=== PATIENT | male | born 1965 | race Caucasian/White ===

== ENCOUNTER 2022-03-15 09:13 | Outpatient (CLI) | payer OTHER, SELFPAY ==
--- NOTE | 2022-03-15 09:15 | MR_ITS ---
[address] [address] Phone:?[phone] Fax:?[phone] Referring Physician Information: Og Roach M.D. [id number] [facility] [address] Phone:?[phone] Fax:?[phone] Patient:Keri Cardenas D.O.B:?1965 Sex:?Male Phone:?[phone] [facility] MRN:?[id number] Exam Date:?03/15/2022 ? EXAM: MRI of the LEFT KNEE, without contrast CLINICAL HISTORY: Left knee pain. COMPARISONS: None available. TECHNICAL: MR sequences of the left knee: sagittals: PD, PDFS coronals: PD, STIR axials: PD, T2 FS CONTRAST: None SEDATION: None FINDINGS: Bones: No fracture, bone marrow contusion, or other suspicious bone marrow signal abnormality. Patellofemoral joint: Cartilage: There is a bipartite patella. There is diffuse grade III and IV chondromalacia over the median patellar ridge and medial patellar facet with slight associated degenerative subchondral cystic changes. There is an approximately 1.0 x 1.0 cm area of grade III to IV chondromalacia over the central portion of the trochlea with slight subjacent subchondral cystic change best seen on sagittal series 6 image 18 and axial series 4 image 17. Retinacula: The medial and lateral retinacula are intact. Fat pads: The infrapatellar, quadriceps, and prefemoral fat pads are unremarkable. Knee joint: Effusion: Trace left knee joint effusion. Popliteal cyst: Small popliteal cyst. Intra-articular bodies: None. Medial compartment: Medial meniscus: Intact. Cartilage: Diffuse near full-thickness and full-thickness chondral loss over most of the weightbearing portion of the medial femoral condyle with mild associated degenerative subchondral cystic changes and single full-thickness chondral fissure over the anterior portion of the medial tibial plateau with subjacent subchondral cystic change. Lateral compartment: Lateral meniscus: Intact. Cartilage: Intact. Ligaments: Anterior cruciate ligament: Intact. Posterior cruciate ligament: Intact. Medial collateral ligament: Intact. Posterior oblique ligament: Intact. Fibular collateral ligament: Intact. Posterolateral corner: The distal biceps femoris tendon, iliotibial band, popliteus tendon, popliteus muscle, popliteofibular ligament, and arcuate ligament are intact. Posteromedial corner: The semimembranosus and pes anserine tendons are intact. Extensor mechanism: Patellar tendon: Intact. Quadriceps tendon: Intact, without tendinopathy. IMPRESSION: 1. Diffuse grade III and IV chondromalacia over the median patellar ridge and medial patellar facet with slight associated degenerative subchondral cystic changes and an approximately 1.0 x 1.0 cm area of grade III to IV chondromalacia over the central portion of the trochlea with slight subjacent subchondral cystic change. Bipartite patella. 2. Diffuse near full-thickness and full-thickness chondral loss over most of the weightbearing portion of the medial femoral condyle with mild associated degenerative subchondral cystic changes and single full-thickness chondral fissure over the anterior portion of the medial tibial plateau with subjacent subchondral cystic change. 3. Trace left knee joint effusion. Small popliteal cyst. 4. No ligamentous injury, tendinous pathology, or meniscal tear of the left knee. RCB Electronically signed on 03/15/2022 11:40:00 AM by Will Baron M.D.
== END 2022-03-15 09:14 | disposition home or self-care (01) ==
LOC: MRI 09:14
PROVIDERS: PCP Family Medicine; Visit Provider Orthopaedic Surgery
DX: M25.562 Pain in left knee (principal); M22.42 Chondromalacia patellae, left knee; M25.462 Effusion, left knee; M17.12 Unilateral primary osteoarthritis, left knee
CPT/HCPCS: 73721

== ENCOUNTER 2022-04-15 09:51 | Outpatient (CLI) | payer OTHER, SELFPAY ==
[2022-04-15 13:40] LABS: Basophils Absolute Auto 0.02 K/uL (0.00-0.30); Basophils Percent Auto 0.4 % (0.0-3.0); Eosinophils Absolute Auto 0.11 K/uL (0.00-0.50); Hematocrit 48.5 % (37.0-53.0); Hemoglobin* 16.8 gm/dL (13.5-17.5); Immature Granulocytes Abs Auto 0.02 K/uL (0.00-0.30); Lymphocytes Absolute Auto 1.33 K/uL (0.90-2.90); Lymphocytes Percent Auto 24.2 % (20-44); Mean Corpuscular HGB Conc 35 gm/dL (32-36); Mean Corpuscular Hemoglobin 32 pg (26-34); Mean Corpuscular Volume 91 fL (80-100); Monocytes Percent Auto 10.4 % (0.0-11.0); Neutrophils Absolute Auto 3.45 K/uL (1.7-7.0); Neutrophils Percent Auto 62.6 % (42.0-72.0); Platelet Count* 190 K/uL (140-440); RDW Coefficient of Variation % 12.2 % (11.5-15.5); Red Blood Count 5.34 m/uL (4.30-5.90)
[2022-04-15 13:43] LABS: Slide Review Reflex No
[2022-04-15 14:23] LABS: Chloride* 103 mmol/L (96-114); Potassium* 4.4 mmol/L (3.6-5.1); Sodium* 138 mmol/L (135-149)
[2022-04-15 14:26] LABS: Blood Urea Nitrogen* 17 mg/dL (7-30); Calcium* 9.6 mg/dL (8.4-10.6); Carbon Dioxide* 25 mmol/L (20-32); Creatinine* 1.1 mg/dL (0.5-1.5); Estimated Glomerular Filt Rate 79 ml/min; Glucose* 119 mg/dL (60-115)
== END 2022-04-15 09:52 | disposition home or self-care (01) ==
LOC: FBOREF 09:58
PROVIDERS: PCP Family Medicine; Visit Provider Family Medicine
DX: Z01.818 Encounter for other preprocedural examination (principal)
CPT/HCPCS: 80048; 85025

== ENCOUNTER 2022-04-21 14:37 | Inpatient (IN) | payer OTHER, SELFPAY ==
[2022-04-20] VITALS (20 sets, daily range): BP systolic 99–165; BP diastolic 72–132; PULSE 54–88; RESP 14–18; TEMP 35.3–36.7; O2SAT 94–100; BMI 28.3
[2022-04-20] MEDS: LACTATED RINGERS 1000 ML 1,000 ML 100 ML IV ×2 (08:30→12:44)
[2022-04-20] MEDS: ACETAMINOPHEN 500 MG TABLET 1000 MG PO ×3 (09:45→23:48)
[2022-04-20] MEDS: OXYCODONE (CR) 10 MG TAB.ER.12H PO (09:45)
[2022-04-20] MEDS: CELECOXIB 200 MG CAPSULE PO ×2 (09:45→22:08)
[2022-04-20] MEDS: SODIUM CHLORIDE 0.9 % (FLUSH) 10 ML SYRINGE IVF (10:20)
[2022-04-20] MEDS: MIDAZOLAM HCL 1 MG/ML inj IVP (10:30)
[2022-04-20] MEDS: fentaNYL 100 MCG/2 ML inj IVP (10:30)
--- NOTE | 2022-04-20 10:47 | SUR.PREOP ---
TIME?OUT:?1030 PT/RN/MDA?VERIFICATION?OF?SURGICAL?SITE blateral knees,?PROCEDURE nerve block,?AND?CONSENT OBTAINED?PRIOR?TO?INVASIVE?PROCEDURE.
[2022-04-20] MEDS: CEFAZOLIN 2 GM INJ IVP (11:00)
[2022-04-20] MEDS: TRANEXAMIC ACID 100 MG/ML INJ 1000 MG IV (11:05)
--- NOTE | 2022-04-20 11:13 | P.NB_ITS ---
Nerve Block Nerve Block Date Seen: 04/20/22 Type of block requested by surgeon for post-operative analgesia: geniculars Side: bilateral Time out performed: Yes Verification of patient name: Yes Verification of date of : Yes Site marking: site marked Name of person performing procedure: Ronak Continuous monitoring Was continuous monitoring of O2 sat, B/P, engine monitor, recorded every 15 minutes?: Yes Procedure Checklist: sterile prep, needles and gloves Medications given in 5ml increments after negative aspiration: Marcaine %: 0.25 mL: 12 Needle gauge: 25 and Exparel mL: 6 Needle gauge: 25 Patient tolerated procedure well: Yes Block Charges Block Charge (with Pro Fee): Genicular Nerve Block Use of Ultrasound Machine for Block: No
--- NOTE | 2022-04-20 11:16 | W.PM.NB ---
Nerve Block Nerve Block Date Seen: 04/20/22 Type of block requested by surgeon for post-operative analgesia: adductor canal Side: bilateral Time out performed: Yes Verification of patient name: Yes Verification of date of : Yes Site marking: site marked Name of person performing procedure: Ronak Continuous monitoring Was continuous monitoring of O2 sat, B/P, threat monitoring analyst, recorded every 15 minutes?: Yes Procedure Checklist: sterile prep, needles and gloves Ultrasound guided. Images saved: Yes Medications given in 5ml increments after negative aspiration: Marcaine %: 0.25 mL: 28 Needle gauge: 20 and Exparel mL: 14 Needle gauge: 20 Patient tolerated procedure well: Yes Additional comments: Needle noted adjacent to nerve Block Charges Block Charge (with Pro Fee): Femoral Nerve Use of Ultrasound Machine for Block: Yes- US Guidance/pain block
--- NOTE | 2022-04-20 12:44 | SUR.OPER ---
Patient was transferred from Same Day Surgery by bed to OR2. Patient was assisted to transfer to the OR bed. MOBILE PAINT SPECIALIST positioned pillow to assist airway. Patient was covered by 2 warm blankets to provide warmth and comfort. Patient was positioned per Jeff Robb's orders.
--- NOTE | 2022-04-20 13:46 | CRLHL7_ITS ---
For Patients: As a result of the Cures Act, medical imaging exams and procedure reports are released immediately into your electronic medical record. You may view this report before your referring provider. If you have questions, please contact your health care provider. Indication: Postop Technique: Two views right knee Findings/Impression: Hardware from a right total knee arthroplasty is in satisfactory position. Bone alignment is normal. No sign of acute fracture. Postop changes are within normal limits. Dictated by Kike Toure MD @ 04/20/2022 3:34:22 PM Signed by:?Kike Toure MD @04/20/2022 3:34:22 PM (Electronic Signature)
--- NOTE | 2022-04-20 13:46 | XR_ITS ---
Indication: Postop Technique: Two views left knee Findings/Impression: Hardware from a left total knee arthroplasty is in satisfactory position. Bone alignment is normal. No sign of acute fracture. Postop changes are within normal limits. Dictated by Kike Toure MD @ 04/20/2022 3:36:17 PM Signed by:?Kike Toure MD @04/20/2022 3:36:17 PM (Electronic Signature)
--- NOTE | 2022-04-20 13:48 | PM.ORPRC ---
Procedure Note Date of procedure: 04/20/22 Procedure: SURGEON: Og Roach MD IMAGER: Lisa Solroio PA-C, DONNIE Sapp PREOPERATIVE DIAGNOSIS: Bilateral knee osteoarthritis POSTOPERATIVE DIAGNOSIS: Bilateral knee osteoarthritis NAME OF OPERATION: Bilateral total knee arthroplasty ANESTHESIA: Spinal ESTIMATED BLOOD LOSS: 0 mL COMPLICATIONS: None SPECIMENS: None DRAINS: None PREOPERATIVE ANTIBIOTICS: Ancef 2 grams IMPLANTS: 1. J&J Attune # 8 left, 7 right posterior stabilized femur 2. # 7 fixed-bearing tibia 3. # 7 posterior stabilized, 5 mm fixed-bearing polyethylene 4. 41 patella INDICATIONS: The patient is a 56-year-old male with a longstanding history of severe, unrelenting bilateral knee pain secondary to end-stage (grade IV) bilateral knee osteoarthritis. Despite appropriate nonoperative management, including activity modification, anti-inflammatories, ttsl-ugn-[id number] pain medication, bracing, physical therapy, and injections they continue to have pain and disability. Operative intervention was offered. The risks, benefits and expected outcomes were discussed in detail. These included but were not limited to: Infection, bleeding, injury to blood vessel or nerve, venous thromboembolism. All questions were answered to their satisfaction. Use of an assistant business manager was necessary throughout the case for patient positioning and safety, soft tissue retraction, and closure. PROCEDURE: Spinal anesthesia was administered. The patient was placed supine on the operating table. The assistant business manager made sure the patient was positioned appropriately. Both lower extremities were prepped and draped in the usual sterile fashion. Attention was directed to the left knee, the limb was exsanguinated with the Dharmesh bandage. The pneumatic tourniquet was inflated to 300 mmHg. A standard anterior incision was made with the knee in flexion. Subcutaneous dissection was sharply taken through fascial layer #1. Full-thickness medial and lateral flaps were elevated. The assistant business manager retracted the soft tissues and protected them throughout the case. A standard medial parapatellar approach was made. The patella was everted. The infrapatellar fat pad was preserved. The menisci and cruciate ligaments were sharply d?brided. Marginal osteophytes were d?brided with the rongeur. The drill was used to penetrate the femoral canal. The canal was aspirated and irrigated with pulse lavage. The intramedullary femoral guide was placed for a 5-degree valgus cut, removing 10 mm off the distal femur. The saw was used to make the cut. Whitesides line and the trans epicondylar axis were marked. The femoral sizing guide was pinned onto the distal femur. Three degrees of external rotation nicely parallels the transepicondylar axis. Pins were placed for posterior referencing. The four-in-one cutting guide was pinned onto the distal femur. The anterior, posterior, and chamfer cuts were made. The assistant business manager protected the collateral ligaments. The box cutting guide was pinned. The box cuts were made. The boxed trial was placed and was an excellent fit. Drill holes for the lugs were made. Attention was then turned to the proximal tibia. The extramedullary tibial guide was placed for a neutral varus/valgus cut with 5 degrees of posterior slope, removing 2 mm based off the medial tibial surface. The assistant business manager protected the collateral ligaments and the neurovascular bundle. The saw was used to make the cut. Trial components were placed. The knee was tight in both flexion and extension. Therefore, we replaced the tibial cutting guide, advancing it 2 more mm distally. The saw was used to revise the cut. Trial components were placed again. Now the knee was nicely balanced in both flexion and extension. The trial components were removed. The tray was pinned by the assistant business manager and the drill and the punch were used. The tray was removed. The punch was used again. We placed a bone plug in the femoral canal. Attention was then turned to the patella. [place] patellar thickness was 24 mm. The lobster claw resection guide was used with the 9.5 mm ebonie. The saw was used to make the cut. Drill holes were made by the assistant business manager. The trial was placed and was an excellent fit. Cancellous surfaces were irrigated with pulse lavage and thoroughly dried by the assistant business manager. We cemented the tibial component, then the femoral component. A trial spacer was placed. The knee was brought into full extension. We then cemented the patellar component. Excessive cement was removed. The cement was allowed to harden. Any remaining excessive cement was removed with the osteotome. We impacted the 5 mm polyethylene onto the tibial tray. The knee was taken through a range of motion and was found to be nicely balanced in both flexion and extension. The patella tracks centrally. The assistant business manager did a three minute dilute Betadine solution soak. The assistant business manager irrigated the wound with 3 liters of normal saline via pulse lavage. The assistant business manager reapproximated the extensor mechanism with #1 Vicryl in an interrupted [id number] fashion. The assistant business manager then ran the extensor mechanism with a #1 PDO Stratafix. The assistant business manager closed the subcutaneous tissues with a 3-0 Stratafix and the skin with a running 3-0 Stratafix in a subcuticular fashion. Glue was used to seal the skin. The assistant business manager placed a dry dressing. The tourniquet was released. While the assistant business manager completed the wound closure, attention was turned to the right knee. The limb was exsanguinated with the Dharmesh bandage. The pneumatic tourniquet was inflated to 300 mmHg. A standard anterior incision was made with the knee in flexion. Subcutaneous dissection was sharply taken through fascial layer #1. Full-thickness medial and lateral flaps were elevated. The assistant business manager retracted the soft tissues and protected them throughout the case. A standard medial parapatellar approach was made. The patella was everted. The infrapatellar fat pad was preserved. The menisci and cruciate ligaments were sharply d?brided. Marginal osteophytes were d?brided with the rongeur. The drill was used to penetrate the femoral canal. The canal was aspirated and irrigated with pulse lavage. The intramedullary femoral guide was placed for a 5-degree valgus cut, removing 10 mm off the distal femur. The saw was used to make the cut. Whitesides line and the trans epicondylar axis were marked. The femoral sizing guide was pinned onto the distal femur. Three degrees of external rotation nicely parallels the transepicondylar axis. Pins were placed for posterior referencing. The four-in-one cutting guide was pinned onto the distal femur. The anterior, posterior, and chamfer cuts were made. The assistant business manager protected the collateral ligaments. The box cutting guide was pinned. The box cuts were made. The boxed trial was placed and was an excellent fit. Drill holes for the lugs were made. Attention was then turned to the proximal tibia. The extramedullary tibial guide was placed for a neutral varus/valgus cut with 5 degrees of posterior slope, removing 2 mm based off the medial tibial surface. The assistant business manager protected the collateral ligaments and the neurovascular bundle. The saw was used to make the cut. Trial components were placed. The knee was tight in both flexion and extension. Therefore, we replaced the tibial cutting guide, advancing it 2 more mm distally. The saw was used to revise the cut. Trial components were placed again. Now the knee was nicely balanced in both flexion and extension. The trial components were removed. The tray was pinned by the assistant business manager and the drill and the punch were used. The tray was removed. The punch was used again. We placed a bone plug in the femoral canal. Attention was then turned to the patella. [place] patellar thickness was 24 mm. The lobster claw resection guide was used with the 9.5 mm ebonie. The saw was used to make the cut. Drill holes were made by the assistant business manager. The trial was placed and was an excellent fit. Cancellous surfaces were irrigated with pulse lavage and thoroughly dried by the assistant business manager. We cemented the tibial component, then the femoral component. A trial spacer was placed. The knee was brought into full extension. We then cemented the patellar component. Excessive cement was removed. The cement was allowed to harden. Any remaining excessive cement was removed with the osteotome. We impacted the 5 mm polyethylene onto the tibial tray. The knee was taken through a range of motion and was found to be nicely balanced in both flexion and extension. The patella tracks centrally. The assistant business manager did a three minute dilute Betadine solution soak. The assistant business manager irrigated the wound with 3 liters of normal saline via pulse lavage. The assistant business manager reapproximated the extensor mechanism with #1 Vicryl in an interrupted cmrbpi-qz-ysovm fashion. The assistant business manager then ran the extensor mechanism with a #1 PDO Stratafix. The assistant business manager closed the subcutaneous tissues with a 3-0 Stratafix and the skin with a running 3-0 Stratafix in a subcuticular fashion. Glue was used to seal the skin. The assistant business manager placed a dry dressing. The tourniquet was released. The patient tolerated the procedure well. There were no apparent complications. They were carefully transferred to the hospital bed and taken to the postanesthesia care unit in satisfactory condition. PLAN: The patient will be mobilized with physical therapy. Aspirin will be used for DVT prophylaxis. They will be discharged to home once medically appropriate.
--- NOTE | 2022-04-20 14:37 | W.ANESCHARGE ---
Anesthesia Charges Start Date/Time Anesthesia Start Date: 04/20/22 Anesthesia Start Time: 10:51 Stop Date/Time Anesthesia Stop Date: 04/20/22 Anesthesia Stop Time: 14:35 Summary Emergency: No
--- NOTE | 2022-04-20 14:48 | W.ANESCHARGE ---
Anesthesia Charges Start Date/Time Anesthesia Start Date: 04/20/22 Anesthesia Start Time: 10:51 Stop Date/Time Anesthesia Stop Date: 04/20/22 Anesthesia Stop Time: 14:35 Summary Emergency: No
--- NOTE | 2022-04-20 15:25 | PM.IMCN1 ---
Date of Consult Consult date: 04/20/22 Primary Care Provider: Kike Turner MD Consult Narrative Narrative: Donny Cardenas is a 56 year old male [facility] Medical History (Updated 09/08/22 @ 11:20 by Henrietta Moss) Chronic cough Health care directive on file Hyperlipidemia Surgical History (Updated 09/08/22 @ 10:27 by Henrietta Moss) History of total bilateral knee replacement (04/20/22) Hx of vasectomy Family History Maternal Grandfather Prostate cancer Diabetes Father Lung cancer Mother High blood pressure Breast cancer Uncle Prostate cancer Family/Other Stroke Social History , [facility]) Narrative: , 4 kids, sales, non-smoker, social EtOH Smoking Status: Former smoker What tobacco products do you use: cigarettes Smoking packs per day: 1 Smoking cigarettes per day: 20.0 Smoking quit date/years: <= 15 years ago Do you use any of these nicotine containing products: None Second hand tobacco smoke exposure: No How often do you have a drink containing alcohol: 4 or more times a week Alcohol type: beer How many standard drinks containing alcohol do you have on a typical day: 3 or 4 How often do you have six or more drinks on one occasion: Monthly AUDIT-C Alcohol total score: 7 Non-prescribed substance use: denies use Non-prescribed substance use details: probiotic Caffeine: Yes (coffee, 2-4 cups/AM) Meds Home Medications and Allergies Home Medications Medication Instructions Recorded Confirmed Type Lactobacillus acidophilus 1 1,000 mmu cells PO QDAY 04/14/22 09/08/22 History billion cell capsule calcium carb-vit [id number]-[id number]-vwgu 1 tab PO QDAY 04/14/22 09/08/22 History 333 mg-200 unit-133 mg-5 mg tablet fluticasone propionate 50 2 spray intranasal DAILY PRN 04/15/22 09/08/22 History mcg/actuation nasal spray,suspension Allergies Allergy/AdvReac Type Severity Reaction Status Date / Time No Known Allergies Allergy Unknown Verified 09/08/22 09:57 Exam Const: Vital Signs, click to edit/add: Vital Signs - 24 hr 04/20/22 09:24 04/20/22 10:30 04/20/22 10:45 Temperature 98.1 F Pulse Rate 82 75 78 Respiratory Rate 16 16 16 Blood Pressure 134/89 126/92 H 120/91 H Pulse Oximetry 99 97 98 Oxygen Delivery Me thod Room Air Nasal Cannula Nasal Cannula Oxygen Flow Rate 2 2 04/20/22 14:34 04/20/22 14:40 04/20/22 14:45 Temperature 96.8 F L Pulse Rate 82 78 68 Respiratory Rate 16 14 16 Blood Pressure 101/73 101/74 99/81 Pulse Oximetry 98 99 99 Oxygen Delivery Me thod Room Air Oxygen Flow Rate 04/20/22 14:50 04/20/22 14:55 04/20/22 15:00 Temperature Pulse Rate 70 67 54 L Respiratory Rate 16 14 16 Blood Pressure 105/81 104/72 108/81 Pulse Oximetry 100 98 100 Oxygen Delivery Me thod Oxygen Flow Rate
--- NOTE | 2022-04-20 15:27 | P.IMCN_ITS ---
Date of Consult Patient: [facility] Patient Consult date: 04/20/22 Requesting Physician: Orthopedics Primary Care Provider: Kike Turner MD Consult Narrative Reason for consult: Medical management following bilateral knee arthroplasty Narrative: Donny Cardenas is a 56 year old male admitted who underwent bilateral knee arthroplasty. He is feeling well with no complaints. Pt takes no home medications and is otherwise in very good health. Review of Systems Status of ROS: Reports: 10 or more systems reviewed and unremarkable except as noted in History and below PFSH PFSH Medical History Chronic cough Hyperlipidemia Surgical History (Updated 04/20/22 @ 15:31 by Reagan Andrews MD) History of total bilateral knee replacement Hx of vasectomy Family History Maternal Grandfather Prostate cancer Diabetes Father Lung cancer Mother High blood pressure Breast cancer Uncle Prostate cancer Family/Other Stroke Social History Narrative: , 4 kids, sales, non-smoker, social EtOH Smoking Status: Former smoker What tobacco products do you use: cigarettes Smoking packs per day: 1 Smoking cigarettes per day: 20.0 Smoking quit date/years: <= 15 years ago Do you use any of these nicotine containing products: None Second hand tobacco smoke exposure: No How often do you have a drink containing alcohol: 4 or more times a week Alcohol type: beer How many standard drinks containing alcohol do you have on a typical day: 3 or 4 How often do you have six or more drinks on one occasion: Monthly AUDIT-C Alcohol total score: 7 Non-prescribed substance use: denies use Non-prescribed substance use details: probiotic Caffeine: Yes (coffee, 2-4 cups/AM) Meds Home Medications and Allergies Home Medications Medication Instructions Recorded Confirmed Type Lactobacillus acidophilus 1 1,000 mmu cells PO QDAY 04/14/22 04/20/22 History billion cell capsule calcium carb-vit T0-esgaelaql-pjgj 1 tab PO QDAY 04/14/22 04/20/22 History 333 mg-200 unit-133 mg-5 mg tablet fluticasone propionate 50 2 spray intranasal DAILY PRN 04/15/22 04/20/22 History mcg/actuation nasal spray,suspension Home Medication Comments: Pt not taking any chronic medications at this time. Allergies Allergy/AdvReac Type Severity Reaction Status Date / Time No Known Allergies Allergy Unknown Verified 04/20/22 09:20 Exam Narrative: Exam Narrative: EXAM GENERAL: Patient appears comfortable and well. EYES: No scleral icterus. THYROID: no thyroid nodules or thyromegaly. LYMPH: No supraclavicular or cervical lymphadenopathy. SKIN: Visible skin seen during exam normal or with benign process only. EXT: Bilateral knees sterilely dressed. HEART: Regular rate and rhythm with no murmurs, rubs, or gallops. LUNGS: Clear to auscultation bilaterally with no crackles or wheezes. ABD: Soft, non tender, non distended. PSYCH: Good eye contact, speech is not pressured. Const: Vital Signs, click to edit/add: Vital Signs - 24 hr 04/20/22 09:24 04/20/22 10:30 04/20/22 10:45 Temperature 98.1 F Pulse Rate 82 75 78 Respiratory Rate 16 16 16 Blood Pressure 134/89 126/92 H 120/91 H Pulse Oximetry 99 97 98 Oxygen Delivery Me thod Room Air Nasal Cannula Nasal Cannula Oxygen Flow Rate 2 2 04/20/22 14:34 04/20/22 14:40 04/20/22 14:45 Temperature 96.8 F L Pulse Rate 82 78 68 Respiratory Rate 16 14 16 Blood Pressure 101/73 101/74 99/81 Pulse Oximetry 98 99 99 Oxygen Delivery Me thod Room Air Oxygen Flow Rate 04/20/22 14:50 04/20/22 14:55 04/20/22 15:00 Temperature Pulse Rate 70 67 54 L Respiratory Rate 16 14 16 Blood Pressure 105/81 104/72 108/81 Pulse Oximetry 100 98 100 Oxygen Delivery Me thod Oxygen Flow Rate Assessment and Plan Assessment and plan (1) History of total bilateral knee replacement: Status: Acute Assessment and Plan: Patient takes no home medications. Will follow standard postoperative PT OT and routine care. Patient anticipating discharge home the next 1-2 days. I did call Orthopedics suggesting consideration of a more aggressive DVT prophylaxis. Patient will be receiving aspirin 81 mg b.i.d. for DVT prophylaxis. Patient is a full code.
[2022-04-20] MEDS: HYDROmorphone 0.5 mg/0.5 ml inj IVP ×4 (16:00→21:25)
[2022-04-20] MEDS: CEFAZOLIN 2 GM in 0.9 % SODIUM CHLORIDE Mini-bag 100 ML IVPB (17:20)
[2022-04-20] MEDS: ONDANSETRON 2 MG/ML inj 4 MG IVP ×2 (17:20→20:55)
--- NOTE | 2022-04-20 17:58 | PC.NURSE ---
[id number]- Patient arrives to unit at approximately 1515. at bedside. he initially denies pain, then describes incisional pain. Dilaudid given. Temperature is decreased- see charting- [place] hastings applied. Ice chip and water offered. Cryocuffs in place.
[2022-04-20] MEDS: LACTATED RINGERS 1000 ML 1,000 ML 75 ML IV (18:59)
[2022-04-20 19:26] LABS: Sodium* 138 mmol/L (135-149)
[2022-04-20] MEDS: LORazepam 0.5 MG TABLET PO (22:09)
--- NOTE | 2022-04-20 22:31 | PC.NURSE ---
Shift Note [id number]: Pt friendly and cooperative but c/o severe nausea and pain. Zofran IVP x2 and order obtained for Compazine if needed for breakthrough nausea. Dilaudid 0.5mg IVP PRN for pain 7-10, pt unable to transition to oral pain meds d/t nausea. Walked to BR with assist x2, GB, and walker, and was able to void. Maintenance fluids ongoing d/t poor oral intake and emesis x3. at bedside. BP's slightly hypertensive, VS otherwise WNL and LS COA. Dressing to both knees C,D,&I with cryocuffs in place.
[2022-04-20] MEDS: ASPIRIN 81 MG TABLET EC PO (23:48)
[2022-04-21] VITALS (8 sets, daily range): BP systolic 119–149; BP diastolic 75–92; PULSE 78–97; RESP 16–18; TEMP 36.2–37.3; O2SAT 92–100
[2022-04-21] MEDS: OXYCODONE 5 MG TABLET PO ×11 (00:09→23:04)
[2022-04-21] MEDS: CEFAZOLIN 2 GM in 0.9 % SODIUM CHLORIDE Mini-bag 100 ML IVPB ×2 (00:47→08:49)
[2022-04-21] MEDS: LORazepam 0.5 MG TABLET PO ×2 (00:50→22:13)
[2022-04-21] MEDS: LACTATED RINGERS 1000 ML 1,000 ML 75 ML IV ×2 (05:10→10:45)
--- NOTE | 2022-04-21 05:13 | PC.NURSE ---
Addendum entered by Rosendo Tavares RN 04/21/22 06:28: Up to void 350mls moises urine IVF cont's. Ambulated slowly but steadily and needed physical assist to swin legs into bed. Surgical dressings CDI. Original Note: VSS w/O2 tapered to RA. Pain from 7/10 down to 4/10 gave Oxycodone Q2H w/bites of gibran crackers and jordan Tylenol. Ice packs placed behind both knees and cryo cuff around knees as he was complaining of pain behind as well and had increase in pain there w/light palpation. Nausea has gone from moderate to mild. Pt was given an additional 1mg of Ativan about MN. Pt diet was backed off to sips/chips at MN d/t nausea and is now tolerating water. Pt c/o being cold even though his skin was warm and he was piled high w/blankets so MEENA blanket was applied overnight. Has not gotten up to void yet so we'll see how that goes. in room
[2022-04-21] MEDS: ACETAMINOPHEN 500 MG TABLET 1000 MG PO ×3 (05:48→19:27)
[2022-04-21 07:12] LABS: Basophils Absolute Auto 0.01 K/uL (0.00-0.30); Basophils Percent Auto 0.1 % (0.0-3.0); Eosinophils Absolute Auto 0.01 K/uL (0.00-0.50); Eosinophils Percent Auto 0.1 % (0.0-7.0); Hematocrit 43.1 % (37.0-53.0); Hemoglobin* 14.7 gm/dL (13.5-17.5); Immature Granulocytes Abs Auto 0.01 K/uL (0.00-0.30); Mean Corpuscular HGB Conc 34 gm/dL (32-36); Mean Corpuscular Hemoglobin 31 pg (26-34); Mean Corpuscular Volume 92 fL (80-100); Monocytes Percent Auto 8.8 % (0.0-11.0); Neutrophils Percent Auto 75.9 % (42.0-72.0); Platelet Count* 164 K/uL (140-440); RDW Coefficient of Variation % 12.3 % (11.5-15.5); Red Blood Count 4.71 m/uL (4.30-5.90); White Blood Count* 8.21 K/uL (4.50-11.00)
[2022-04-21 07:30] LABS: INR 0.99 (0.91-1.10); Potassium* 4.4 mmol/L (3.6-5.1); Prothrombin Time 13.4 Seconds
[2022-04-21 07:31] LABS: Slide Review Reflex No
[2022-04-21 07:33] LABS: Blood Urea Nitrogen* 15 mg/dL (7-30); Est. Creatinine Clearance* 91.61; Estimated Glomerular Filt Rate 89 ml/min
[2022-04-21 08:12] LABS: Sodium* 134 mmol/L (135-149)
[2022-04-21] MEDS: SENNOSIDES 1 TAB TABLET 2 TAB PO ×2 (08:44→20:44)
[2022-04-21] MEDS: CELECOXIB 200 MG CAPSULE PO ×2 (08:45→20:44)
[2022-04-21] MEDS: ASPIRIN 81 MG TABLET EC PO ×2 (08:45→20:44)
--- NOTE | 2022-04-21 10:01 | PM.ORPN ---
Subjective Subjective Time Seen by Provider: 07:00 Date Seen: 04/21/22 Principal diagnosis: Status post bilateral knee replacements Interval history: Donny is comfortable at rest this morning. He is accompanied by his . He has no nausea or vomiting currently. Ortho Exam Narrative Exam Narrative: Alert and oriented x3. Patient is in no acute distress. Converses without labored breathing. Hearing is grossly intact. Ambulates with a walker. Examination of the right and left knees shows the dressings are intact. Mild fusion. Mild soft tissue edema about the knees. Bilateral calves are soft and nontender. CMS is intact bilateral lower extremities. Bilateral quads are weak. Const Vital Signs, click to edit/add: Vital Signs - 24 hr 04/20/22 10:30 04/20/22 10:45 04/20/22 14:34 Temperature 96.8 F L Pulse Rate 75 78 82 Pulse Rate [Right Pulse Oximeter] Respiratory Rate 16 16 16 Blood Pressure 126/92 H 120/91 H 101/73 Blood Pressure [Left Arm] Pulse Oximetry 97 98 98 Oxygen Delivery Method Nasal Cannula Nasal Cannula Room Air Oxygen Flow Rate 2 2 04/20/22 14:40 04/20/22 14:45 04/20/22 14:50 Temperature Pulse Rate 78 68 70 Pulse Rate [Right Pulse Oximeter] Respiratory Rate 14 16 16 Blood Pressure 101/74 99/81 105/81 Blood Pressure [Left Arm] Pulse Oximetry 99 99 100 Oxygen Delivery Method Oxygen Flow Rate 04/20/22 14:55 04/20/22 15:00 04/20/22 18:59 Temperature 97 F L Pulse Rate 67 54 L Pulse Rate [Right Pulse Oximeter] Respiratory Rate 14 16 Blood Pressure 104/72 108/81 Blood Pressure [Left Arm] Pulse Oximetry 98 100 Oxygen Delivery Method Oxygen Flow Rate 04/20/22 16:15 04/20/22 16:30 04/20/22 16:45 Temperature 95.6 F L 95.9 F L Pulse Rate Pulse Rate [Right Pulse Oximeter] 61 57 L 54 L Respiratory Rate 18 16 16 Blood Pressure Blood Pressure [Left Arm] 126/90 H 126/89 122/86 Pulse Oximetry 98 97 99 Oxygen Delivery Method Room Air Room Air Room Air Oxygen Flow Rate 04/20/22 17:00 04/20/22 17:30 04/20/22 18:00 Temperature 96.4 F L Pulse Rate Pulse Rate [Right Pulse Oximeter] 55 L 60 67 Respiratory Rate 16 16 16 Blood Pressure Blood Pressure [Left Arm] 128/92 H 155/104 H 165/106 H Pulse Oximetry 99 96 96 Oxygen Delivery Method Room Air Room Air Room Air Oxygen Flow Rate 04/20/22 19:00 04/20/22 20:00 04/20/22 21:00 Temperature 97 F L 97.4 F L Pulse Rate Pulse Rate [Right Pulse Oximeter] 79 76 84 Respiratory Rate 16 16 16 Blood Pressure Blood Pressure [Left Arm] 161/132 H 156/93 H 144/87 H Pulse Oximetry 96 96 94 Oxygen Delivery Method Room Air Room Air Room Air Oxygen Flow Rate 04/20/22 22:27 04/21/22 00:27 04/21/22 03:00 Temperature 97.9 F 98.6 F Pulse Rate Pulse Rate [Right Pulse Oximeter] 88 84 97 Respiratory Rate 16 16 16 Blood Pressure Blood Pressure [Left Arm] 142/75 H 149/92 H 130/86 Pulse Oximetry 96 100 96 Oxygen Delivery Method Nasal Cannula Nasal Cannula Room Air Oxygen Flow Rate 1 1 Assessment and Plan Assessment and plan (1) History of total bilateral knee replacement: Problem details: Plan for discharge is today to home if he meets discharge criteria. DVT prophylaxis includes aspirin 81 mg twice daily x1 month, Bob stockings x1 month may remove for 1 hr per day, frequent ambulation, every hour throughout the day. Remove dressings in 1 week. Observe wound and phone Orthopedics with any questions or concerns Return to clinic in 1 week for a wound check Return to clinic in [address] Roach Minimize narcotic use. Wean off and discontinue soon as possible. Activities as tolerated. No strenuous activity. Outpatient physical therapy as scheduled. Ice and elevate the operative extremity. No restriction on ice. Status: Acute
[2022-04-21] MEDS: SODIUM CHLORIDE 0.9 % (FLUSH) 10 ML SYRINGE 5 ML IVF ×3 (10:30→20:48)
--- NOTE | 2022-04-21 10:42 | PM.DS1 ---
DS: Providers Provider Time Seen by Provider: 09:45 Date Seen: 04/21/22 Primary care physician: Kike Turner MD Consults: 04/20/22 16:10 Consult to Occupational Therapy [CONS] Routine Comment: Reason(s) for OT Consult:: ADLs Prior to Discharge Any Restrictions?:: See Comment Comment: See nursing activity order for any restrictions. Consult to Physical Therapy [CONS] Routine Comment: Ambulate in the rodríguez today. Reason(s) for PT Consult:: TKA TX Protocol POD#0 Any Restrictions?:: See Comment Comment: See nursing activity order for any restrictions. Consult to Physician [CONS] Routine Comment: Consulting Provider: Hospitalists Has provider been notified: No Consult to Urology Teacher [CONS] Routine Comment: Reason for Consult:: Discharge Planning Needs Attending Physician on discharge: Og Roach MD Date of Discharge: 04/21/22 DS: Diagnosis Discharge Diagnosis (1) History of total bilateral knee replacement: Status: Acute Problem details: Plan for discharge is today to home if he meets discharge criteria. DVT prophylaxis includes aspirin 81 mg twice daily x1 month, Bob stockings x1 month may remove for 1 hr per day, frequent ambulation, every hour throughout the day. Remove dressings in 1 week. Observe wound and phone Orthopedics with any questions or concerns Return to clinic in 1 week for a wound check Return to clinic in [address] Roach Minimize narcotic use. Wean off and discontinue soon as possible. Activities as tolerated. No strenuous activity. Outpatient physical therapy as scheduled. Ice and elevate the operative extremity. No restriction on ice. (2) Chronic cough: Status: Acute (3) Hyperlipidemia: Status: Acute DS: Summary Hospital Course Hospital Course: This is a 56-year-old male wonder went in elective bilateral knee arthroplasty yesterday. He is generally pretty healthy and takes no home medications. He had some nausea and vomiting postop yesterday, but this has since resolved. His is concerned about getting him up the steps into their house, but notes that once they are there he will not have to do any stairs. After discussion, she identified a brother who lives in town who could help get house. He is discharged home today in stable condition. Time Spent with Patient Time attestation: Total time spent providing and/or coordinating discharge services: Exam Narrative: Exam Narrative: General: No acute distress. Awake, alert, oriented x3. No pallor. No jaundice. Oropharynx: Clear. Mucous membranes moist. Cardiovascular: Regular rate and rhythm. No murmurs, gallops, or rubs. Respiratory: Clear to auscultation bilaterally. No wheezes or crackles. Abdomen: Bowel sounds present. Soft, nondistended, nontender. Extremities: Bilateral knee bandages are clean, dry, and intact. Const: Vital Signs, click to edit/add: Vital Signs - 24 hr 04/20/22 10:45 04/20/22 14:34 04/20/22 14:40 Temperature 96.8 F L Pulse Rate 78 82 78 Pulse Rate [Right Pulse Oximeter] Respiratory Rate 16 16 14 Blood Pressure 120/91 H 101/73 101/74 Blood Pressure [Le ft Arm] Pulse Oximetry 98 98 99 Oxygen Delivery Me thod Nasal Cannula Room Air Oxygen Flow Rate 2 04/20/22 14:45 04/20/22 14:50 04/20/22 14:55 Temperature Pulse Rate 68 70 67 Pulse Rate [Right Pulse Oximeter] Respiratory Rate 16 16 14 Blood Pressure 99/81 105/81 104/72 Blood Pressure [Le ft Arm] Pulse Oximetry 99 100 98 Oxygen Delivery Me thod Oxygen Flow Rate 04/20/22 15:00 04/20/22 18:59 04/20/22 16:15 Temperature 97 F L 95.6 F L Pulse Rate 54 L Pulse Rate [Right Pulse Oximeter] 61 Respiratory Rate 16 18 Blood Pressure 108/81 Blood Pressure [Le ft Arm] 126/90 H Pulse Oximetry 100 98 Oxygen Delivery Me thod Room Air Oxygen Flow Rate 04/20/22 16:30 04/20/22 16:45 04/20/22 17:00 Temperature 95.9 F L Pulse Rate Pulse Rate [Right Pulse Oximeter] 57 L 54 L 55 L Respiratory Rate 16 16 16 Blood Pressure Blood Pressure [Le ft Arm] 126/89 122/86 128/92 H Pulse Oximetry 97 99 99 Oxygen Delivery Me thod Room Air Room Air Room Air Oxygen Flow Rate 04/20/22 17:30 04/20/22 18:00 04/20/22 19:00 Temperature 96.4 F L 97 F L Pulse Rate Pulse Rate [Right Pulse Oximeter] 60 67 79 Respiratory Rate 16 16 16 Blood Pressure Blood Pressure [Le ft Arm] 155/104 H 165/106 H 161/132 H Pulse Oximetry 96 96 96 Oxygen Delivery Me thod Room Air Room Air Room Air Oxygen Flow Rate 04/20/22 20:00 04/20/22 21:00 04/20/22 22:27 Temperature 97.4 F L Pulse Rate Pulse Rate [Right Pulse Oximeter] 76 84 88 Respiratory Rate 16 16 16 Blood Pressure Blood Pressure [Le ft Arm] 156/93 H 144/87 H 142/75 H Pulse Oximetry 96 94 96 Oxygen Delivery Me thod Room Air Room Air Nasal Cannula Oxygen Flow Rate 1 04/21/22 00:27 04/21/22 03:00 04/21/22 07:00 Temperature 97.9 F 98.6 F 99.2 F Pulse Rate Pulse Rate [Right Pulse Oximeter] 84 97 84 Respiratory Rate 16 16 16 Blood Pressure Blood Pressure [Le ft Arm] 149/92 H 130/86 119/75 Pulse Oximetry 100 96 95 Oxygen Delivery Me thod Nasal Cannula Room Air Room Air Oxygen Flow Rate 1 DS: Data Data Completed and Pending Completed studies during hospitalization: Ordering Physician: Og Roach M.D. Date of Service: 04/20/22 Procedure(s): XR knee RT 2V Accession Number(s): [id number] cc: Kike Turner M.D.; Og Roach M.D.~ For Patients: As a result of the Cures Act, medical imaging exams and procedure reports are released immediately into your electronic medical record. You may view this report before your referring provider. If you have questions, please contact your health care provider. Indication: Postop Technique: Two views left knee Findings/Impression: Hardware from a left total knee arthroplasty is in satisfactory position. Bone alignment is normal. No sign of acute fracture. Postop changes are within normal limits. Dictated by Kike Toure MD @ 04/20/2022 3:36:17 PM (Electronically Signed) Labs on day of discharge: Labs from last 24 hours 04/21/22 04/21/22 04/21/22 06:40 06:40 06:40 WBC RBC Hgb Hct MCV MCH MCHC RDW Coeff of Deven Plt Count Neut % (Auto) Lymph % (Auto) [place] % (Auto) Eos % (Auto) Baso % (Auto) Neut # (Auto) Lymph # (Auto) [place] # (Auto) Eos # (Auto) Baso # (Auto) Abs Immat Gran (auto) INR 0.99 Sodium 134 L Potassium 4.4 BUN 15 Creatinine 1.0 Estimated Creat Clear 91.61 Estimated GFR 89 04/21/22 04/20/22 06:40 19:03 WBC 8.21 RBC 4.71 Hgb 14.7 Hct 43.1 MCV 92 MCH 31 MCHC 34 RDW Coeff of Deven 12.3 Plt Count 164 Neut % (Auto) 75.9 H Lymph % (Auto) 15.0 L [place] % (Auto) 8.8 Eos % (Auto) 0.1 Baso % (Auto) 0.1 Neut # (Auto) 6.20 Lymph # (Auto) 1.20 [place] # (Auto) 0.70 Eos # (Auto) 0.01 Baso # (Auto) 0.01 Abs Immat Gran (auto) 0.01 INR Sodium 138 Potassium BUN Creatinine Estimated Creat Clear Estimated GFR Discharge Plan Discharge Disposition: Home, Self-Care Discharging Surgeon: Og Roach Follow-Up Appointment: 1 week Prescriptions: New aspirin [Children's Aspirin] 81 mg Tablet,Chewable 81 mg PO BID 30 Days Qty: 60 0RF acetaminophen 500 mg Tablet 500 - 1,000 mg PO Q6H MDD 4000 mg per day PRN (Reason: pain) Qty: 100 0RF celecoxib 200 mg Capsule 200 mg PO BID PRNQty: 14 0RF oxycodone 5 mg Tablet 2.5 - 5 mg PO Q4-6H MDD 6 tabs per day PRN (Reason: Pain) Qty: 42 0RF Rx Instructions: Minimize. Discontinue as soon as possible sennosides [Senna Lax] 8.6 mg Tablet 17.2 mg PO BID PRN (Reason: constipation) Qty: 100 0RF Continued Lactobacillus acidophilus 1 billion cell capsule 1,000 mmu cells PO QDAY calcium carb-D3-mag [id number] [id number] vp-giwd-ec-mg tablet 1 tab PO QDAY Rx Instructions: administer with a meal fluticasone propionate 50 mcg/actuation spray,suspension 2 spray intranasal DAILY PRN Activity Level: Activity as Tolerated and No strenuous activity Activity Detail: Keep dressings on for 1 week. Dressings are waterproof. May shower. Surgical glue covers the wound. Attend outpatient physical therapy if scheduled. Ice operative extremity without restriction. Wear compression stockings for 1 month post surgery. May remove for 1 hour per day. Ambulate every hour throughout the day. Do not drive while taking narcotic pain medication. Do not drink alcohol while taking narcotic pain medication. May drive when safe to do so and have full function of the extremities, this may take 6 weeks or more. Notify Orthopedics with any questions or concerns. ([phone]) Discharge Diet: Regular Patient Instructions: Operative Knee Arthroscopy (DC) Forms: Work/Release Restrictions Follow-up: Kike Turner MD [Primary Care Provider] - Og Roach MD [Staff Physician] - 04/28/22 11:00 am (Follow up with [facility]) Discharge Orders: Discharge Order (Routine); Ordered 04/21/22 Ordered By: Mana Ramirez
--- NOTE | 2022-04-21 14:14 | PC.NURSE ---
Pt s/p Bilateral TKA with Dr. Diane done yesterday. Please see eMar for medications given on day shift. Pt has rated his pain 5-7.5 depending on his activity level, he has received oxycodone 10mg PO approximately every 2-21/2 hours in addition to celebrex and scheduled tylenol doses,. Bilateral teds, cryocuffs, SCDs and ice packs under each knee for comfort. Eval by Mana NICHOLAS this am. Pt was extremely nauseated after his surgical procedure and states I did not sleep well. Advanced to regular diet this am. Last IV ATB infused and IV to SL. Bed alarm and chair alarm engaged per fall prevention routine protocol. PT and OT evaluated pt and recommendation is for pt to stay one more night. Mana NICHOLAS notified/ updated per Suzan mcnamara RN via phone. Intake 870 cc with 400cc out in clear moises urine. Encouraged IS, PO fluids and nutritional intake. Plan d/c to home tomorrow with Faby who has been present and supportive at [place]'s bedside.
--- NOTE | 2022-04-21 14:51 | PC.SOCIAL ---
Met with pt. and spouse to discuss discharge plans. Pt. had bilateral TKA surgery. Pt. plans to discharge home with spouse support and does not feel he will need any additional resources at discharge. Pt. is aware he can contact web content & social media manager if he needs any additional resources for discharge.
[2022-04-21] MEDS: ONDANSETRON 2 MG/ML inj 4 MG IVP (19:09)
--- NOTE | 2022-04-21 21:29 | PC.NURSE ---
Shift Note [id number]: Pt friendly and cooperative with cares. Moves with with assist x1 with GB and walker. VS WNL and LS COA. Surgical dressings to knees bilaterally C,D,&I with Cryocuffs in place. Positive pedal pulses and pt verbalizes baseline sensation in LE's bilaterally. Continues to require 10mg Oxycodone approximately Q2H, rating pain 8-9/10 most of this shift. At HS pt appears more comfortable, at bedside visiting. Zofran given IVP this evening for wave of nausea, no emesis at this time.
[2022-04-22] MEDS: ACETAMINOPHEN 500 MG TABLET 1000 MG PO ×3 (02:02→12:31)
[2022-04-22] MEDS: OXYCODONE 5 MG TABLET PO ×4 (02:04→12:59)
[2022-04-22 03:00] VITALS: BP 127/76; PULSE 90; RESP 18; TEMP 36.4; O2SAT 92
[2022-04-22 04:10] VITALS: TEMP 37
[2022-04-22 06:27] LABS: Basophils Absolute Auto 0.02 K/uL (0.00-0.30); Basophils Percent Auto 0.2 % (0.0-3.0); Eosinophils Absolute Auto 0.08 K/uL (0.00-0.50); Eosinophils Percent Auto 0.9 % (0.0-7.0); Hematocrit 42.8 % (37.0-53.0); Hemoglobin* 14.6 gm/dL (13.5-17.5); Immature Granulocytes Abs Auto 0.01 K/uL (0.00-0.30); Mean Corpuscular HGB Conc 34 gm/dL (32-36); Mean Corpuscular Hemoglobin 31 pg (26-34); Mean Corpuscular Volume 92 fL (80-100); Monocytes Percent Auto 7.7 % (0.0-11.0); Neutrophils Percent Auto 74.1 % (42.0-72.0); Platelet Count* 166 K/uL (140-440); RDW Coefficient of Variation % 12.3 % (11.5-15.5); Red Blood Count 4.67 m/uL (4.30-5.90); White Blood Count* 8.79 K/uL (4.50-11.00)
[2022-04-22 06:43] LABS: Est. Creatinine Clearance* 91.61; Estimated Glomerular Filt Rate 89 ml/min
[2022-04-22 06:44] LABS: Blood Urea Nitrogen* 13 mg/dL (7-30)
[2022-04-22 07:06] LABS: Slide Review Reflex No
[2022-04-22 07:15] LABS: Prothrombin Time 15.7 Seconds
--- NOTE | 2022-04-22 07:19 | PC.NURSE ---
Pt slept well overnight. Up with 1 assist and walker. Bilat knee incisions covered with dressing which are CDI. oxycodone q2-3hrs for pain. Voiding well. No stool.
[2022-04-22] MEDS: SODIUM CHLORIDE 0.9 % (FLUSH) 10 ML SYRINGE 5 ML IVF (07:28)
[2022-04-22] MEDS: ONDANSETRON 2 MG/ML inj 4 MG IVP (07:28)
[2022-04-22 07:30] VITALS: BP 124/81; PULSE 87; RESP 16; TEMP 36.6; O2SAT 93
[2022-04-22] MEDS: PROCHLORPERAZINE 10 MG TABLET 5 MG PO (08:25)
[2022-04-22] MEDS: CELECOXIB 200 MG CAPSULE PO (08:51)
[2022-04-22] MEDS: ASPIRIN 81 MG TABLET EC PO (08:51)
[2022-04-22] MEDS: SENNOSIDES 1 TAB TABLET 2 TAB PO (08:52)
--- NOTE | 2022-04-22 10:19 | PM.ORPN ---
Subjective Subjective Time Seen by Provider: 07:00 Date Seen: 04/22/22 Principal diagnosis: Status post bilateral knee replacements Interval history: Donny is comfortable at rest this morning. He is accompanied by his . He has had nausea upon ambulating. Ortho Exam Narrative Exam Narrative: Alert and oriented x3. Patient is in no acute distress. Converses without labored breathing. Hearing is grossly intact. Ambulates with a walker. Examination of bilateral knees shows since our place. Mild effusion. Mild soft tissue edema about both knees. Bilateral calves are soft and nontender. CMS is intact bilateral lower extremities. Weak quad function. Const Vital Signs, click to edit/add: Vital Signs - 24 hr 04/21/22 11:15 04/21/22 15:00 04/21/22 15:00 Temperature 97.1 F L 98.4 F Pulse Rate [Right Pulse Oximeter] 90 86 86 Respiratory Rate 18 18 18 Blood Pressure [Left Arm] 131/89 128/81 Pulse Oximetry 92 97 Oxygen Delivery Method Room Air Room Air 04/21/22 19:00 04/21/22 23:00 04/22/22 04:10 Temperature 98.6 F 98.6 F Pulse Rate [Right Pulse Oximeter] 78 78 Respiratory Rate 18 Blood Pressure [Left Arm] 136/78 Pulse Oximetry 96 Oxygen Delivery Method Room Air 04/22/22 03:00 04/21/22 23:30 04/22/22 07:30 Temperature 97.5 F L 98 F 98 F Pulse Rate [Right Pulse Oximeter] 90 82 87 Respiratory Rate 18 16 16 Blood Pressure [Left Arm] 127/76 126/80 124/81 Pulse Oximetry 92 95 93 Oxygen Delivery Method Room Air Room Air Room Air Documenting provider has reviewed patient's vital signs: yes Assessment and Plan Assessment and plan (1) History of total bilateral knee replacement: Problem details: Plan for discharge is today to home today. I have added Ondansetron for home use, for nausea. DVT prophylaxis includes aspirin 81 mg twice daily x1 month, Bob stockings x1 month may remove for 1 hr per day, frequent ambulation, every hour throughout the day. Remove dressings in 1 week. Observe wound and phone Orthopedics with any questions or concerns Return to clinic in 1 week for a wound check Return to clinic in [address] Roach Minimize narcotic use. Wean off and discontinue soon as possible. Activities as tolerated. No strenuous activity. Outpatient physical therapy as scheduled. Ice and elevate the operative extremity. No restriction on ice. Status: Acute (2) Chronic cough: Status: Acute (3) Hyperlipidemia: Status: Acute
[2022-04-22] MEDS: TRAMADOL HCL 50 MG TABLET PO (10:47)
--- NOTE | 2022-04-22 10:47 | P.DS_ITS ---
DS: Providers Provider Date Seen: 04/22/22 Date of admission: 04/21/22 14:37 Primary care physician: Kike Turner MD Admitting Clinician: Og Roach MD Consults: 04/20/22 16:10 Consult to Occupational Therapy [CONS] Routine Comment: Reason(s) for OT Consult:: ADLs Prior to Discharge Any Restrictions?:: See Comment Comment: See nursing activity order for any restrictions. Consult to Physical Therapy [CONS] Routine Comment: Ambulate in the rodríguez today. Reason(s) for PT Consult:: TKA TX Protocol POD#0 Any Restrictions?:: See Comment Comment: See nursing activity order for any restrictions. Consult to Physician [CONS] Routine Comment: Consulting Provider: Hospitalists Has provider been notified: No Consult to Asphalt Tamper [CONS] Routine Comment: Reason for Consult:: Discharge Planning Needs Attending Physician on discharge: Og Roach MD Date of Discharge: 04/22/22 DS: Diagnosis Discharge Diagnosis (1) History of total bilateral knee replacement: Status: Acute Problem details: Plan for discharge is today to home today. I have added Ondansetron for home use, for nausea. DVT prophylaxis includes aspirin 81 mg twice daily x1 month, Bob stockings x1 month may remove for 1 hr per day, frequent ambulation, every hour throughout the day. Remove dressings in 1 week. Observe wound and phone Orthopedics with any questions or concerns Return to clinic in 1 week for a wound check Return to clinic in [address] Roach Minimize narcotic use. Wean off and discontinue soon as possible. Activities as tolerated. No strenuous activity. Outpatient physical therapy as scheduled. Ice and elevate the operative extremity. No restriction on ice. (2) Intractable nausea and vomiting: Status: Acute Problem details: Patient has had fairly severe ongoing nausea. Began while he was received intravenous hydromorphone and has continued with oral oxycodone. He is requiring fairly high doses of opioid medication for his knee pain. DS: Summary Hospital Course Hospital Course: 56-year-old male who underwent bilateral total knee arthroplasty 2 days ago. Procedure was uncomplicated. Postoperatively he has made slow progress with physical therapy and has had difficulties with a fairly severe ongoing nausea. The nausea is occurred with IV Dilaudid as well as oral oxycodone. He is requiring fairly high doses of pain medications. No other postoperative complications.. Status at Discharge Functional status at discharge: uses cane/walker Overall status at discharge: patient is progressing back to baseline Time Spent with Patient Time attestation: Total time spent providing and/or coordinating discharge services: Time spent: Greater than 30 minutes Exam Narrative: Exam Narrative: He is alert and appears in no distress. Respirations are clear to auscultation. Cardiovascular: S1, S2, regular rate and rhythm. Abdomen: Bowel sounds active. Abdomen is soft without tenderness or mass. Extremities with bilateral bandages on the knees. Distally he has intact pulses sensation and motion. No significant edema Const: Vital Signs, click to edit/add: Vital Signs - 24 hr 04/21/22 11:15 04/21/22 15:00 04/21/22 15:00 Temperature 97.1 F L 98.4 F Pulse Rate [Right Pulse Oximeter] 90 86 86 Respiratory Rate 18 18 18 Blood Pressure [Le ft Arm] 131/89 128/81 Pulse Oximetry 92 97 Oxygen Delivery Me thod Room Air Room Air 04/21/22 19:00 04/21/22 23:00 04/22/22 04:10 Temperature 98.6 F 98.6 F Pulse Rate [Right Pulse Oximeter] 78 78 Respiratory Rate 18 Blood Pressure [Le ft Arm] 136/78 Pulse Oximetry 96 Oxygen Delivery Me thod Room Air 04/22/22 03:00 04/21/22 23:30 04/22/22 07:30 Temperature 97.5 F L 98 F 98 F Pulse Rate [Right Pulse Oximeter] 90 82 87 Respiratory Rate 18 16 16 Blood Pressure [Le ft Arm] 127/76 126/80 124/81 Pulse Oximetry 92 95 93 Oxygen Delivery Me thod Room Air Room Air Room Air Documenting provider has reviewed patient's vital signs: yes DS: Data Data Completed and Pending Labs on day of discharge: Labs from last 24 hours 04/22/22 04/22/22 04/22/22 05:50 05:50 05:50 WBC 8.79 RBC 4.67 Hgb 14.6 Hct 42.8 MCV 92 MCH 31 MCHC 34 RDW Coeff of Deven 12.3 Plt Count 166 Neut % (Auto) 74.1 H Lymph % (Auto) 17.0 L Band[place] % (Auto) 7.7 Eos % (Auto) 0.9 Baso % (Auto) 0.2 Neut # (Auto) 6.50 Lymph # (Auto) 1.50 Bandera # (Auto) 0.70 Eos # (Auto) 0.08 Baso # (Auto) 0.02 Abs Immat Gran (auto) 0.01 INR 1.20 H Potassium 4.0 BUN 13 Creatinine 1.0 Estimated Creat Clear 91.61 Estimated GFR 89 Discharge Plan Discharge Disposition: Home, Self-Care Date of Admission: 04/21/22 14:37 Attending Provider on Discharge: Og Roach Consulting Providers: Jill Packer ; Carolyn Alford ; Physician,[place] ; Fracisco Rudd ; Jorje Smith ; Guillermo Victor ; Loyda Pino ; Shira Rivera ; Eugenia Edward ; Sascha Guerrero ; Rich Cates ; Rebecca Dobson ; Harvinder Comer ; Bronson Kaplan ; Jorge Luis Nobles ; Martinez Nobles ; Jack Mon ; Pelon Reddy ; Ximena Nath ; Marianna Vicente ; Evelyn Browne ; Trent,Elisabeth ; Kam Almazan ; Reagan Andrews ; Manuela Zimmerman ; Amilcar Qureshi ; Nilda Rider ; Tosin Molina ; Zeus Mariscal Primary Care Provider: Kike Turner Condition: Stable Anticipated Discharge Date/Time: 04/22/22 12:26 Discharge Medications: New aspirin [Children's Aspirin] 81 mg Tablet,Chewable 81 mg PO BID 30 Days Qty: 60 0RF acetaminophen 500 mg Tablet 500 - 1,000 mg PO Q6H MDD 4000 mg per day PRN (Reason: pain) Qty: 100 0RF celecoxib 200 mg Capsule 200 mg PO BID PRNQty: 14 0RF oxycodone 5 mg Tablet 2.5 - 5 mg PO Q4-6H MDD 6 tabs per day PRN (Reason: Pain) Qty: 42 0RF Rx Instructions: Minimize. Discontinue as soon as possible sennosides [Senna Lax] 8.6 mg Tablet 17.2 mg PO BID PRN (Reason: constipation) Qty: 100 0RF ondansetron 4 mg tablet,disintegrating 4 mg PO Q8H Qty: 15 0RF Continued Lactobacillus acidophilus 1 billion cell capsule 1,000 mmu cells PO QDAY calcium carb-D3-mag [id number] [phone] xf-ocfq-nu-mg tablet 1 tab PO QDAY Rx Instructions: administer with a meal fluticasone propionate 50 mcg/actuation spray,suspension 2 spray intranasal DAILY PRN Discharge Orders: Discharge Order (Routine); Ordered 04/21/22 Ordered By: Mana Ramirez Patient Education: Operative Knee Arthroscopy (DC) Activity Level: Activity as Tolerated and No strenuous activity Activity Detail: Keep dressings on for 1 week. Dressings are waterproof. May shower. Surgical glue covers the wound. Attend outpatient physical therapy if scheduled. Ice operative extremity without restriction. Wear compression stockings for 1 month post surgery. May remove for 1 hour per day. Ambulate every hour throughout the day. Do not drive while taking narcotic pain medication. Do not drink alcohol while taking narcotic pain medication. May drive when safe to do so and have full function of the extremities, this may take 6 weeks or more. Notify Orthopedics with any questions or concerns. ([phone]) Discharge Diet: Regular Follow Up Appointments: [facility] [Other] - 04/23/22 10:15 am Sarina Camacho PA-C [Physician Business Planning Director] - 04/28/22 11:00 am (Schedule 6 week surgeon appointment at this time.) Kike Turner MD [Primary Care Provider] - Og Roach MD [Staff Physician] - None Forms: Work/Release Restrictions
[2022-04-22 11:00] VITALS: BP 153/85; PULSE 89; RESP 16; TEMP 36.8; O2SAT 95
--- NOTE | 2022-04-22 11:20 | PC.NURSE ---
Patient reluctant to get up and move with therapy d/to nausea this am. Pt received IV Zofran 4mg at 0728 am. This treatment was ineffective, Dr. Kaplan aware and RN gave pt 5mg of compazine orally. Pt had a few bites of breakfast and sips of cranberry juice. Pt was able to swallow his morning meds which included 10mg of oxycodone and celebrex for pain 5.5 out of 10. Pt later walked with Randee LANDERS and has just finished shower with Alla SANCHES. Nausea persists with any activity. Faby reviewed her husbands medications with primary RN. Continue plan of care with plan for d/c to own home later today. Pt needs encouragement and positive reinforcement.
[2022-04-22] MEDS: METOCLOPRAMIDE 10 MG TABLET PO (12:46)
[2022-04-22] MEDS: hydrOXYzine pamoate 25 MG CAPSULE PO (12:59)
--- NOTE | 2022-04-22 13:27 | PC.NURSE ---
RN consultd with Dr. Kaplan regarding pt's consistent c/o nausea with movement. Reglan 10mg PO once given. Oxycodone 5 mg given with 25 of vistaril to potentiate pain control after pt tolerated 50% of apple juice, butterscotch pudding and applesauce. Pt rating his pain 9-10 out of 10 but does not appear in acute distress. Tramadol given earlier in shift did nothing per pt. ES tylenol given for discomfort. Cryocuffs in place. RN spoke briefly with Sarina NICHOLAS at the ortho clinic regarding pt concerns r/to discharge. Message left for Mana Foote and Dr. Roach who are currently in surgery, RN spoke with German in surgical area who will let them know that pt is reluctant to discharge this afternoon. Faby present and supportive at bedside throughout the day. Discharge papers are available once pt is evaluated by orthopedic group.
--- NOTE | 2022-04-22 15:12 | PC.NURSE ---
Dr. Roach in to evaluate patient during d/c instruction process with primary RN. Pt & verbalized understanding of d/c diagnosis, home meds, new prescriptions, pain management plan, f/up appts and sx to report urgently to physician. Discharged via w/c with all personal belongings to own home with his Faby as primary caregiver and transportation. RX for FWW provided to pt's spouse.
== END 2022-04-22 15:08 | disposition home or self-care (01) | DRG 462 ==
LOC: OR 14:57 → MEDSURG 14:58
PROVIDERS: Admitting Provider Orthopaedic Surgery; PCP Family Medicine; Visit Provider Orthopaedic Surgery
PROC: 0SRD0J9 Replacement of Left Knee Joint with Synthetic Substitute, Cemented, Open Approach (ICD-10-PCS; CPT 27447; principal; 2022-04-20 11:00)
DX: M17.0 Bilateral primary osteoarthritis of knee (principal); R05.3 Chronic cough; R11.2 Nausea with vomiting, unspecified; E78.5 Hyperlipidemia, unspecified
CPT/HCPCS: 01402; 36415; 64447; 64454; 73560; 76942; 82565; 84132; 84295; 84520; 85025; 85610; 97110; 97116; 97161; 97165; 97535; A9270; C1776; C9290; J0690; J1170; J2250; J2405; J2704; J3010; J3490; J7120

== ENCOUNTER 2022-07-06 15:00 | Outpatient (RCR) | payer OTHER, SELFPAY ==
--- NOTE | 2022-05-11 16:00 | CRLHL7_ITS ---
For Patients: As a result of the Century Cures Act, medical imaging exams and procedure reports are released immediately into your electronic medical record. You may view this report before your referring provider. If you have questions, please contact your health care provider. INDICATION: Leg pain and swelling. TECHNIQUE: Ultrasound venous duplex bilateral lower extremity. Compression venous exam was performed using villalpando-scale, color Doppler, and spectral Doppler analysis. COMPARISON: None. FINDINGS: Deep veins: Sonographic imaging demonstrates the right common femoral, deep femoral, superficial femoral, popliteal, posterior tibial and the contralateral right common femoral veins to be fully compressible with normal color Doppler blood flow. Superficial veins: Greater saphenous vein is fully compressible. No popliteal cyst. IMPRESSION: Normal bilateral lower extremity venous ultrasound, no sign of deep venous thrombosis. Dictated by Santiago Cisneros MD @ 05/11/2022 4:39:19 PM (Electronically Signed)
== END 2022-07-06 16:01 | disposition home or self-care (01) ==
PROVIDERS: PCP Family Medicine; Visit Provider Orthopaedic Surgery
DX: Z96.653 Presence of artificial knee joint, bilateral (principal); Z51.89 Encounter for other specified aftercare
CPT/HCPCS: 93970; 97110; 97116; 97140; 97161; 97164; 97535

== ENCOUNTER 2024-01-17 11:17 | Outpatient (CLI) | payer OTHER, SELFPAY | END 2024-01-17 11:18 | disposition home or self-care (01) | PROVIDERS: PCP Family Medicine; Visit Provider Family Medicine | DX: Z01.818 Encounter for other preprocedural examination (principal); E78.2 Mixed hyperlipidemia; Z12.5 Encounter for screening for malignant neoplasm of prostate | CPT/HCPCS: 80048; 80061; 85025; G0103 ==

== ENCOUNTER 2024-02-09 09:15 | Day surgery (SDC) | payer OTHER, SELFPAY ==
[2024-02-09] VITALS (11 sets, daily range): BP systolic 73–128; BP diastolic 48–92; PULSE 53–80; RESP 14–16; TEMP 35.8–36.9; O2SAT 92–99; BMI 29.3
[2024-02-09] MEDS: LACTATED RINGERS 1000 ML 1,000 ML 100 ML IV (10:10)
[2024-02-09] MEDS: SODIUM CHLORIDE 0.9 % (FLUSH) 10 ML SYRINGE IVF (10:10)
--- NOTE | 2024-02-09 10:12 | SUR.OPER ---
PATIENT QUESTIONS ANSWERED SATISFACTORILY PREOPERATIVELY. PATIENT BROUGHT TO OR #3 PER CART FOLLOWING THE BLOCK. Patient positioned supine on OR #3 bed for the intubation.? PATIENT SAT UP INTO THE BEACH CHAIR POSITION FOR THE PROCEDURE. Perioperative team wrapped the?left arm in a neutral position on the pt. abdomen with the drawsheet.? Right arm elevated on an IV pole in a padded strap. Final approval of positioning by surgeon.
[2024-02-09] MEDS: SCOPOLAMINE 1 MG/3 DAY PATCH 1 PATCH TRANSDERMA (10:20)
--- NOTE | 2024-02-09 10:42 | W.ANESCHARGE ---
Anesthesia Charges Start Date/Time Anesthesia Start Date: 02/09/24 Anesthesia Start Time: 11:14 Stop Date/Time Anesthesia Stop Date: 02/09/24 Anesthesia Stop Time: 12:29
[2024-02-09] MEDS: CEFAZOLIN 2 GM INJ IVP (11:30)
[2024-02-09] MEDS: BUPIVACAINE 0.25% 30 ML INJECTION (12:06)
--- NOTE | 2024-02-09 12:18 | PM.ORPRC ---
Procedure Note Date of procedure: 02/09/24 Procedure: PREOPERATIVE DIAGNOSIS: Right total knee arthroplasty patellar clunk syndrome POSTOPERATIVE DIAGNOSIS: Right total knee arthroplasty patellar clunk syndrome NAME OF OPERATION: Right total knee arthroplasty arthroscopic debridement SURGEON: Og Roach MD [employer] FINISH SPRAYER: Harvinder Evans PA-C ANESTHESIA: Spinal ESTIMATED BLOOD LOSS: 0 mL COMPLICATIONS: None SPECIMENS: None DRAINS: None PREOPERATIVE ANTIBIOTICS: Ancef 2 gram INDICATIONS: The patient is a 58-year-old with a history of right total knee arthroplasty patellar clunk syndrome. Operative intervention was recommended. The risks, benefits and expected outcomes were discussed in detail. These included but were not limited to: Infection, bleeding, injury to blood vessel or nerve, venous thromboembolism. All questions were answered to their satisfaction. PROCEDURE: Spinal anesthesia was administered. The patient was placed supine on the operating room table. The right lower extremity was prepped and draped in the usual sterile fashion. The limb was exsanguinated with the Dharmesh bandage. The pneumatic tourniquet was inflated to 300 mmHg. A standard anterolateral portal was established. The arthroscope was introduced. The working portal was established anteromedially. Diagnostic arthroscopy was performed with findings as follows: The patellar component is intact with circumferential scarring surrounding it. The femoral component is normal, the tibial polyethylene is normal. The scarring around the patellar component was debrided with the shaver and radiofrequency probe. Arthroscopic instruments were removed, the portal sites were closed with a 3-0 nylon. Portals were injected with 0.25% Marcaine without epinephrine. A dry dressing was applied, the tourniquet was released. Sponge and needle counts were correct x 2. The patient tolerated the procedure well. There were no apparent complications. They were carefully transferred to the hospital bed and taken to the postanesthesia care unit in satisfactory condition. PLAN: The patient will be discharged to home. They may weightbear as tolerates. Range of motion will be unrestricted. They will follow up in the office next week for a wound check.
--- NOTE | 2024-02-09 12:34 | W.ANESCHARGE ---
Anesthesia Charges Start Date/Time Anesthesia Start Date: 02/09/24 Anesthesia Start Time: 11:14 Stop Date/Time Anesthesia Stop Date: 02/09/24 Anesthesia Stop Time: 12:29
== END 2024-02-09 13:51 | disposition home or self-care (01) ==
PROVIDERS: PCP Family Medicine; Visit Provider Orthopaedic Surgery
PROC: (CPT 29870; principal; 2024-02-09 11:45)
DX: M25.861 Other specified joint disorders, right knee (principal)
CPT/HCPCS: 29877; 01400; A9270; J0665; J0690; J1100; J2250; J2371; J2405; J2704; J3010; J7120

== ENCOUNTER 2024-05-24 07:51 | Outpatient (CLI) | payer OTHER, SELFPAY ==
--- NOTE | 2024-05-24 09:34 | W.ANESCHARGE ---
Anesthesia Charges Start Date/Time Anesthesia Start Date: 05/24/24 Anesthesia Start Time: 09:17 Stop Date/Time Anesthesia Stop Date: 05/24/24 Anesthesia Stop Time: 09:48
--- NOTE | 2024-05-24 09:52 | W.ANESCHARGE ---
Anesthesia Charges Start Date/Time Anesthesia Start Date: 05/24/24 Anesthesia Start Time: 09:17 Stop Date/Time Anesthesia Stop Date: 05/24/24 Anesthesia Stop Time: 09:48
== END 2024-05-24 07:52 | disposition home or self-care (01) ==
LOC: OP CLINIC 07:51
PROVIDERS: PCP Family Medicine; Visit Provider Surgery
DX: Z12.11 Encounter for screening for malignant neoplasm of colon (principal); D12.4 Benign neoplasm of descending colon; D12.5 Benign neoplasm of sigmoid colon; Z86.010 Personal history of colon polyps
CPT/HCPCS: 00811; 45385; 88305; J2704